=== PATIENT | female | born 1975 ===

== ENCOUNTER 2017-10-16 11:18 | Outpatient (CLI) | payer OTHER ==
[~2017-10-16 11:18] MED LIST: ANTICONCEPTIVOS; KLONOPIN0.5 MG/TAB PO
== END 2017-10-16 12:00 | disposition home or self-care (01) ==
LOC: NUCLEAR 11:18
DX: M85.89 Other specified disorders of bone density and structure, multiple sites (principal); R00.2 Palpitations; R00.0 Tachycardia, unspecified

== ENCOUNTER 2024-09-24 09:30 | Outpatient (CLI) | payer OTHER | END 2024-09-24 09:42 | disposition home or self-care (01) | LOC: SONOGRAMA 09:30 | PROVIDERS: ATTEND Obstetrics & Gynecology | DX: N84.0 Polyp of corpus uteri (principal) ==